=== PATIENT | female | born 1975 | race Two or more races ===

== ENCOUNTER → 2024-09-13 | Outpatient (CLI) | payer BC, SELFPAY ==
--- NOTE | 2024-09-13 12:30 | XR_ITS ---
Examination: Breast ultrasound complete, bilateral Date and time of exam: September 13, 2024 1232 hours INDICATIONS: Mammogram March 25, 2024 12 mm focal asymmetry inner right breast CC view, 22 mm focal asymmetry outer left breast CC view Technique: Real-time grayscale ultrasonographic imaging bilateral breasts, including all 4 quadrants as well as nipple retroareolar and axillary regions. Findings: Sonographic images right breast 4:00 nodule circumscribed 8 x 7 mm Sonographic images left breast 11:00 cyst 6 x 6 mm No solid nodules IMPRESSION: BI-RADS Category 3: Probably benign findings One additional 6 month right breast sonogram follow-up is needed to document stability of 4:00 nodule described above
--- NOTE | 2024-09-13 13:30 | XR_ITS ---
Examination: Diagnostic digital mammography, bilateral Computer aided detection 3-D breast Tomosynthesis, bilateral Date and time of exam: September 13, 2024 1313 hours INDICATIONS: Mammogram March 25, 2024 right breast 12 mm focal asymmetry inner right breast CC view, 22 mm focal asymmetry outer left breast CC view Technique: Nonmagnified MLO, CC views of the breasts to been obtained, reconstructed from 3-D Tomosynthesis images. R2 computer aided detection program utilized for evaluation of suspicious masses and/or abnormal calcifications. 3-D Tomosynthesis images obtained. Findings: The breasts are heterogeneously dense, which may obscure small masses No suspicious masses are confirmed on the spot compression views Please see the right breast sonogram report today indicating 4:00 nodule right breast 8 x 7 mm requiring 6 month right breast sonogram follow-up Impression: BI-RADS Category 2: Benign findings Recommend yearly follow-up mammography Please see the right breast sonogram report today indicating 4:00 nodule right breast 8 x 7 mm requiring 6 month right breast sonogram follow-up.
== END | disposition home or self-care (01) ==
LOC: CDIM 12:18
PROVIDERS: PCP Family Medicine; Referring Provider Obstetrics & Gynecology; Visit Provider Obstetrics & Gynecology
DX: R92.323 Mammographic fibroglandular density, bilateral breasts (principal); N63.14 Unspecified lump in the right breast, lower inner quadrant
CPT/HCPCS: 76641; 77062; 77066; G0279